=== PATIENT | female | born 1970 | race Two or more races ===

== ENCOUNTER → 2020-05-12 11:01 | Outpatient (BNVA) | payer MEDICARE, OTHER, SELFPAY | PROVIDERS: PCP Internal Medicine; Referring Provider Internal Medicine; Visit Provider Surgery | DX: E66.09 Other obesity due to excess calories (principal); Z68.37 Body mass index [BMI] 37.0-37.9, adult; Z98.84 Bariatric surgery status | CPT/HCPCS: 99024; 99212 ==

== ENCOUNTER → 2020-05-31 07:53 | Outpatient (BNVA) | payer MEDICARE, SELFPAY | PROVIDERS: PCP Internal Medicine; Visit Provider Physician Assistant | DX: E66.09 Other obesity due to excess calories (principal); Z68.36 Body mass index [BMI] 36.0-36.9, adult; Z98.84 Bariatric surgery status | CPT/HCPCS: 99212 ==

== ENCOUNTER → 2020-06-17 08:37 | Outpatient (BNVA) | payer MEDICARE, SELFPAY | PROVIDERS: PCP Internal Medicine; Visit Provider Dietitian, Registered | DX: Z76.89 Persons encountering health services in other specified circumstances (principal) ==

== ENCOUNTER → 2020-06-28 08:51 | Outpatient (BNVA) | payer MEDICARE, SELFPAY | PROVIDERS: PCP Internal Medicine; Referring Provider Internal Medicine; Visit Provider Dietitian, Registered | DX: Z76.89 Persons encountering health services in other specified circumstances (principal) ==

== ENCOUNTER → 2020-06-29 11:02 | Outpatient (BNVA) | payer MEDICARE, SELFPAY | PROVIDERS: PCP Internal Medicine; Visit Provider Physician Assistant | DX: E66.09 Other obesity due to excess calories (principal); Z68.37 Body mass index [BMI] 37.0-37.9, adult; K91.2 Postsurgical malabsorption, not elsewhere classified; Z98.84 Bariatric surgery status | CPT/HCPCS: 99212 ==

== ENCOUNTER → 2020-07-06 09:36 | Outpatient (BNVA) | payer MEDICARE, SELFPAY | PROVIDERS: PCP Internal Medicine; Visit Provider Dietitian, Registered | DX: Z76.89 Persons encountering health services in other specified circumstances (principal) ==

== ENCOUNTER → 2020-07-12 10:39 | Outpatient (BNVA) | payer MEDICARE, SELFPAY | PROVIDERS: PCP Internal Medicine; Visit Provider Surgery | DX: E66.09 Other obesity due to excess calories (principal); Z68.37 Body mass index [BMI] 37.0-37.9, adult; Z98.84 Bariatric surgery status | CPT/HCPCS: 99212 ==

== ENCOUNTER 2020-07-13 09:30 | Outpatient (RCR) | payer MEDICARE, OTHER, SELFPAY | END 2020-07-14 23:55 | disposition home or self-care (01) | LOC: HO.PAOS 09:30 | PROVIDERS: Visit Provider Psychologist | DX: F31.9 Bipolar disorder, unspecified (principal); F43.10 Post-traumatic stress disorder, unspecified; F40.00 Agoraphobia, unspecified; F44.9 Dissociative and conversion disorder, unspecified | CPT/HCPCS: 90834 ==

== ENCOUNTER 2020-07-17 16:19 | Emergency (ER) | payer MEDICARE, MEDICAID, SELFPAY ==
[2020-07-17] VITALS (8 sets, daily range): BP systolic 104–130; BP diastolic 63–73; PULSE 73–88; RESP 14–16; TEMP 36.8; O2SAT 98–100; BMI 33.3
--- NOTE | 2020-07-17 16:25 | ED_ITS ---
HPI - Syncope General Chief Complaint: Syncope Stated Complaint: syncope Time Seen by Provider: 07/17/20 16:23 Source: patient and EMS Mode of arrival: EMS History of Present Illness HPI narrative: 50-year-old female with a past medical history of anxiety, depression, obesity s/p sleeve gastrectomy with hiatal hernia repair on 04/27/2020 BIBA s/p syncopal episode at work. Patient reports she felt lightheaded/dizzy prior to syncopal episode, leaned against wall and slid down, no head strike/hard fall per bystanders. Per coworkers patient was out for about 3 minutes, reports lightheadedness/fatigue at present. Admits since gastrectomy has had difficulty tolerating p.o., has been encouraged to drink more water however gets abdominal pain when does which inhibits her. Has had ED visits for dehydration s/p surgery. Denies syncopal episode in the past. Denies CP/SOB, headache, or other symptoms prior to fall. Denies CP/SOB at present, headache, abdominal pain, nausea/vomiting, recent travel, COVID-19 exposure Related Data Home Medications Medication Instructions Recorded Confirmed acetaminophen 325 mg tablet 325 mg PO QID PRN 05/12/20 06/29/20 famotidine 20 mg tablet 20 mg PO DAILY 05/12/20 05/31/20 Previous Rx's Medication Instructions Recorded bupropion HCl [Wellbutrin XL] 300 mg PO QAM #30 tab 06/21/20 clonazepam [Klonopin] 1 mg PO TID #90 tab 06/21/20 lamotrigine [Lamictal] 25 mg PO DAILY 30 Days #30 tab 06/21/20 sertraline 100 mg PO DAILY #60 tab 06/21/20 topiramate [Topamax] 50 mg PO TID #90 tab 06/21/20 trazodone 50 mg PO BEDTIME #30 tab 06/21/20 ziprasidone HCl [Geodon] 40 mg PO QAM #30 cap 06/21/20 ziprasidone HCl [Geodon] 80 mg PO QPM #30 cap 06/21/20 zolpidem [Ambien] 10 mg PO BEDTIME #30 tab 06/21/20 Allergies Allergy/AdvReac Type Severity Reaction Status Date / Time No Known Allergies Allergy Verified 07/12/20 11:32 Review of Systems Review of Systems: Constitutional: No Weight loss, No Fever, No Chills, No Night Sweats, + Fatigue, No Malaise Eyes: No Vision Changes Cardiovascular: No Chest Pain, No SOB, No Edema, No Palpitations Respiratory: No Cough, No Sputum Gastrointestinal: + Nausea, No Vomiting, No Diarrhea, No Constipation, No Abdominal pain Genitourinary:No Dysuria, No Urinary Frequency, No Hematuria Musculoskeletal: No joint pain, No Myalgias, No Joint Swelling Skin: No Skin Lesions, No rash Neuro: + Weakness, No Numbness, No Paresthesias, + Loss of Consciousness, + Dizziness, No Headache Yes all other systems are reviewed and are negative Neurologic: Denies Sensory deficit (Neuro) [facility] Past Medical History Attestation statement: The following information was validated with the patient. Medical History Anxiety Depression Intestinal malabsorption following gastrectomy Obesity Surgical History History of bilateral tubal ligation History of History of tonsillectomy S/P laparoscopic sleeve gastrectomy Family History Family History Father AIDS Mother High cholesterol HTN (hypertension) Obesity Sister No problems noted. Son No problems noted. Daughter No problems noted. Daughter No problems noted. Maternal Uncle Throat cancer Maternal Uncle Lung cancer Social History Social History (Updated 07/12/20 @ 11:34 by Carrie Baptiste MD) Household Members: Spouse Alcohol intake: unknown Smoking Status: Never smoker Use of substances other than those prescribed or required for medical reasons: No Advance Directives: No Advance Directives Information Provided: No Physical Exam Vital Signs: Vital Signs: Last Vital Signs Temp 98.2 F 07/17/20 16:29 Pulse 73 07/17/20 19:07 Resp 16 07/17/20 19:07 BP 114/68 07/17/20 19:07 Pulse Ox 98 07/17/20 19:07 Body Mass Index 33.3 Const: General: cooperative and healthy appearing Orientation/consciousness: patient oriented x3 Limitations: no limitations HENMT: Head: Yes normal to inspection Ears: hearing grossly normal bilaterally General nose exam: Normal external nose present Face and sinus: Yes normal facial exam Mouth: Normal oral and palatal mucosa present Throat: Yes posterior oropharynx normal Eyes: General: appearance normal, both eyes and all related structures Pupils: Equal, round and reactive pupils present EOM: EOMs intact bilaterally Neck: Neck: Yes normal visual inspection and Yes no meningeal signs Resp: Effort & Inspection: normal respiratory effort Auscultation: clear to auscultation bilaterally, no rales, no rhonchi and no wheezes Cardio: Rate: regular rate Heart sounds: S1 normal heart sound present and S2 normal heart sound present GI: Other: Old surgical scars noted without active infection Inspection: Yes normal to inspection Palpation (GI): Soft to palpation, nontender, no guarding and not rigid Skin: Rashes: no rashes Wounds: no wounds Neuro: General: patient oriented x3, tone normal, moves all extremities, no me ningeal signs, no focal motor deficits and CN's II-XI intact bilaterally Cranial nerves: Yes Equal, round and reactive pupils present Cognition (Neuro): normal cognition Gait exam (Neuro): Normal gait present Motor exam (neuro): 5/5 motor strength present throughout and no pronator drift noted Sensory Exam: No Sensory deficit (Neuro) Coordination: [id number] test normal Extrem: General: Yes normal to inspection Course Course Course Narrative: * EKG normal sinus rhythm, no ischemic changes, inverted Ts in V1 and V2 * H/H stable, BUN 22, labs otherwise unremarkable, troponin negative * Orthostatic vital signs negative * 1932--UA with ketones, not infected, CXR unremarkable * 2021- troponin equivocal MDM - Syncope MDM Narrative Medical decision making narrative: 50-year-old female with a past medical history of anxiety, depression, obesity s/p sleeve gastrectomy with hiatal hernia repair on 04/27/2020 BIBA s/p syncopal episode at work. On exam VSS, NAD/well-appearing, no focal neuro deficits. Concern for syncopal episode due to dehydration/decreased p.o. intake. Rule out electrolyte/metabolic abnormalit ies. Lower concern for ACS/infectious etiology or PE Plan: EKG, labs, UA, IVF, reassess Lab Data Result diagrams: 07/17/20 16:46 07/17/20 16:46 Labs: Lab Results 07/17/20 07/17/20 07/17/20 Range/Units 16:46 16:46 16:46 WBC 9.8 (4.8-10.8) X10*3/uL RBC 4.36 (4.20-5.50) X10*6/uL Hgb 11.7 L (12.0-16.0) g/dl Hct 35.5 L (37-47) % MCV 81.4 (80-98) fL MCH 26.8 L (27.0-33.0) pg MCHC 33.0 (31.0-35.0) g/dl RDW 17.3 H (11.0-16.0) % Plt Count 310 (160-400) X10*3/uL MPV 10.1 (9.4-12.3) fL Immature Gran % (Auto) 0.3 (0.0-0.4) % Neut % (Auto) 73.6 H (45-73) % Lymph % (Auto) 17.5 L (20-40) % [place] % (Auto) 7.1 (2-11) % Eos % (Auto) 1.1 (0-4) % Baso % (Auto) 0.4 (0-2) % Lymph # (Auto) 1.7 (1.2-4.9) X10*3/uL [place] # (Auto) 0.7 (0.1-1.2) X10*3/uL Eos # (Auto) 0.1 (0.0-0.4) X10*3/uL Baso # (Auto) 0.0 (0.0-0.2) X10*3/uL Abs Immat Gran (auto) 0.03 (0.00-0.03) X10*3/uL Absolute Neuts (auto) 7.2 (2.0-8.3) X10*3/uL Absolute Nucleated RBC 0.000 (0.0-0.012) X10*3/uL Nucleated RBC % (auto) 0.0 (0.0-0.2) /100WBC Hold Blue Top SEE NOTE Sodium 139 (135-145) mmol/L Potassium 3.5 (3.3-5.1) mmol/l Chloride 111 H (96-108) mmol/L Carbon Dioxide 21 L (22-29) mmol/L Anion Gap 11 L (12-20) BUN 22 H (9-16) mg/dL Creatinine 0.65 (0.5-1.4) mg/dL Estim Creat Clear Calc 101.9 Estimated GFR > 60 Random Glucose 96 (60-115) mg/dL Calcium 8.2 L (8.4-10.2) mg/dL Magnesium (1.6-2.6) mg/dL Total Bilirubin (0.0-1.0) mg/dL Direct Bilirubin (0.0-0.5) mg/dL AST (5-31) U/L ALT (0-31) U/L Alkaline Phosphatase (39-117) U/L Troponin I High Sens (<3.5-17.0) ng/L Total Protein (6.5-8.0) g/dL Albumin (3.5-5.0) g/dL Urine Color Urine Appearance Urine pH (5.0-8.0) Ur Specific [place] (1.005-1.025) Urine Protein (NEG-TRACE) MG/DL Urine Glucose (UA) (NEG) MG/DL Urine Ketones (NEG) MG/DL Urine Blood (NEG) Urine Nitrite (NEG) Ur Leukocyte Esterase (NEG) 07/17/20 07/17/20 07/17/20 Range/Units 16:46 16:46 19:06 WBC (4.8-10.8) X10*3/uL RBC (4.20-5.50) X10*6/uL Hgb (12.0-16.0) g/dl Hct (37-47) % MCV (80-98) fL MCH (27.0-33.0) pg MCHC (31.0-35.0) g/dl RDW (11.0-16.0) % Plt Count (160-400) X10*3/uL MPV (9.4-12.3) fL Immature Gran % (Auto) (0.0-0.4) % Neut % (Auto) (45-73) % Lymph % (Auto) (20-40) % [place] % (Auto) (2-11) % Eos % (Auto) (0-4) % Baso % (Auto) (0-2) % Lymph # (Auto) (1.2-4.9) X10*3/uL [place] # (Auto) (0.1-1.2) X10*3/uL Eos # (Auto) (0.0-0.4) X10*3/uL Baso # (Auto) (0.0-0.2) X10*3/uL Abs Immat Gran (auto) (0.00-0.03) X10*3/uL Absolute Neuts (auto) (2.0-8.3) X10*3/uL Absolute Nucleated RBC (0.0-0.012) X10*3/uL Nucleated RBC % (auto) (0.0-0.2) /100WBC Hold Blue Top Sodium (135-145) mmol/L Potassium (3.3-5.1) mmol/l Chloride (96-108) mmol/L Carbon Dioxide (22-29) mmol/L Anion Gap (12-20) BUN (9-16) mg/dL Creatinine (0.5-1.4) mg/dL Estim Creat Clear Calc Estimated GFR Random Glucose (60-115) mg/dL Calcium (8.4-10.2) mg/dL Magnesium 1.8 (1.6-2.6) mg/dL Total Bilirubin 0.3 (0.0-1.0) mg/dL Direct Bilirubin 0.2 (0.0-0.5) mg/dL AST 14 (5-31) U/L ALT 23 (0-31) U/L Alkaline Phosphatase 46 (39-117) U/L Troponin I High Sens < 3.5 (<3.5-17.0) ng/L Total Protein 6.1 L (6.5-8.0) g/dL Albumin 3.9 (3.5-5.0) g/dL Urine Color YELLOW Urine Appearance CLEAR Urine pH 6.5 (5.0-8.0) Ur Specific [place] 1.015 (1.005-1.025) Urine Protein NEG (NEG-TRACE) MG/DL Urine Glucose (UA) NEG (NEG) MG/DL Urine Ketones 15 (NEG) MG/DL Urine Blood NEG (NEG) Urine Nitrite NEG (NEG) Ur Leukocyte Esterase NEG (NEG) 07/17/20 Range/Units 19:30 WBC (4.8-10.8) X10*3/uL RBC (4.20-5.50) X10*6/uL Hgb (12.0-16.0) g/dl Hct (37-47) % MCV (80-98) fL MCH (27.0-33.0) pg MCHC (31.0-35.0) g/dl RDW (11.0-16.0) % Plt Count (160-400) X10*3/uL MPV (9.4-12.3) fL Immature Gran % (Auto) (0.0-0.4) % Neut % (Auto) (45-73) % Lymph % (Auto) (20-40) % [place] % (Auto) (2-11) % Eos % (Auto) (0-4) % Baso % (Auto) (0-2) % Lymph # (Auto) (1.2-4.9) X10*3/uL [place] # (Auto) (0.1-1.2) X10*3/uL Eos # (Auto) (0.0-0.4) X10*3/uL Baso # (Auto) (0.0-0.2) X10*3/uL Abs Immat Gran (auto) (0.00-0.03) X10*3/uL Absolute Neuts (auto) (2.0-8.3) X10*3/uL Absolute Nucleated RBC (0.0-0.012) X10*3/uL Nucleated RBC % (auto) (0.0-0.2) /100WBC Hold Blue Top Sodium (135-145) mmol/L Potassium (3.3-5.1) mmol/l Chloride (96-108) mmol/L Carbon Dioxide (22-29) mmol/L Anion Gap (12-20) BUN (9-16) mg/dL Creatinine (0.5-1.4) mg/dL Estim Creat Clear Calc Estimated GFR Random Glucose (60-115) mg/dL Calcium (8.4-10.2) mg/dL Magnesium (1.6-2.6) mg/dL Total Bilirubin (0.0-1.0) mg/dL Direct Bilirubin (0.0-0.5) mg/dL AST (5-31) U/L ALT (0-31) U/L Alkaline Phosphatase (39-117) U/L Troponin I High Sens < 3.5 (<3.5-17.0) ng/L Total Protein (6.5-8.0) g/dL Albumin (3.5-5.0) g/dL Urine Color Urine Appearance Urine pH (5.0-8.0) Ur Specific [place] (1.005-1.025) Urine Protein (NEG-TRACE) MG/DL Urine Glucose (UA) (NEG) MG/DL Urine Ketones (NEG) MG/DL Urine Blood (NEG) Urine Nitrite (NEG) Ur Leukocyte Esterase (NEG) Discharge Plan Discharge Clinical Impression: Dehydration Syncope Qualifiers: Syncope type: unspecified Qualified Code(s): R55 - Syncope and collapse Patient Disposition: Home, Self-Care Instructions: Syncope (ED) Additional Instructions: Your blood work and imaging studies were reassuring You are dehydrated You need to stay hydrated at home, and the drinking your protein shakes Call your bariatric surgeon for close follow up If your symptoms persist or worsen, your unable to eat or drink, develops fever, persistent or recurring lightheadedness/dizziness, or are passing out again return to the ED immediately Prescriptions: No Action ziprasidone HCl [Geodon] 40 mg capsule 40 mg PO QAM Qty: 30 RF: 1 ziprasidone HCl [Geodon] 80 mg capsule 80 mg PO QPM Qty: 30 RF: 1 trazodone 50 mg tablet 50 mg PO BEDTIME Qty: 30 RF: 1 topiramate [Topamax] 50 mg tablet 50 mg PO TID Qty: 90 RF: 1 sertraline 50 mg tablet 100 mg PO DAILY Qty: 60 RF: 1 lamotrigine [Lamictal] 25 mg tablet 25 mg PO DAILY 30 Days Qty: 30 RF: 1 bupropion HCl [Wellbutrin XL] 300 mg tablet extended release 24 hr 300 mg PO QAM Qty: 30 RF: 1 zolpidem [Ambien] 10 mg tablet 10 mg PO BEDTIME Qty: 30 RF: 1 clonazepam [Klonopin] 1 mg tablet 1 mg PO TID Qty: 90 RF: 1 famotidine [Pepcid] 20 mg tablet 20 mg PO DAILY RF: 0 acetaminophen [Tylenol] 325 mg tablet 325 mg PO QID PRNRF: 0 Referrals: Ilene Chambers MD [Primary Care Provider] - 2 days Carrie Baptiste MD [Physician] - 3 days Stand Alone Forms: Work/School Release
--- NOTE | 2020-07-17 16:33 | ECG_ITS ---
Test Reason : SYNCOPY Blood Pressure : / mmHG Vent. Rate : 076 BPM Atrial Rate : 076 BPM P-R Int : 160 ms QRS Dur : 084 ms QT Int : 370 ms P-R-T Axes : 056 024 033 degrees QTc Int : 416 ms Normal sinus rhythm Nonspecific T wave abnormality Abnormal ECG When compared with ECG of 19-APR-2020 10:55, Nonspecific T wave abnormality now evident in Anterior leads Referred By: Arabella Davila Electronically Signed By:JAMAAL LUZ
[2020-07-17 16:51] LABS: MANUAL DIFF FLAG NO
[2020-07-17 16:59] LABS: Basophils Percent Auto 0.4 % (0-2); Eosinophils Absolute Auto 0.1 X10*3/uL (0.0-0.4); Eosinophils Percent Auto 1.1 % (0-4); Hematocrit 35.5 % (37-47); Hemoglobin 11.7 g/dl (12.0-16.0); Imm Gran Abs Auto 0.03 X10*3/uL (0.00-0.03); Imm Gran Pct Auto 0.3 % (0.0-0.4); Lymphocytes Absolute Auto 1.7 X10*3/uL (1.2-4.9); Lymphocytes Percent Auto 17.5 % (20-40); Mean Corpuscular Hemoglobin 26.8 pg (27.0-33.0); Mean Corpuscular Volume 81.4 fL (80-98); Mean Platelet Volume 10.1 fL (9.4-12.3); Monocytes Absolute Auto 0.7 X10*3/uL (0.1-1.2); Monocytes Percent Auto 7.1 % (2-11); Neutrophils Absolute Auto 7.2 X10*3/uL (2.0-8.3); Neutrophils Percent Auto 73.6 % (45-73); Platelet Count 310 X10*3/uL (160-400); Red Blood Count 4.36 X10*6/uL (4.20-5.50); Red Cell Distribution Width 17.3 % (11.0-16.0); White Blood Count 9.8 X10*3/uL (4.8-10.8)
[2020-07-17 17:19] LABS: Anion Gap 11 (12-20); Blood Urea Nitrogen 22 mg/dL (9-16); Calcium 8.2 mg/dL (8.4-10.2); Carbon Dioxide 21 mmol/L (22-29); Chloride 111 mmol/L (96-108); Creatinine Clr Calc Pharmacy 101.9; Estimated Glomerular Filt Rate > 60; Glucose Random 96 mg/dL (60-115); Potassium 3.5 mmol/l (3.3-5.1); Sodium 139 mmol/L (135-145)
[2020-07-17 17:21] LABS: Alanine Aminotransferase 23 U/L (0-31); Albumin Level 3.9 g/dL (3.5-5.0); Alkaline Phosphatase 46 U/L (39-117); Aspartate Amino Transferase 14 U/L (5-31); Bilirubin Direct 0.2 mg/dL (0.0-0.5); Bilirubin Total 0.3 mg/dL (0.0-1.0); Magnesium 1.8 mg/dL (1.6-2.6); Total Protein 6.1 g/dL (6.5-8.0)
[2020-07-17 17:25] LABS: Troponin-I High Sensitivity < 3.5 ng/L (<3.5-17.0)
[2020-07-17] MEDS: 0.9 % Sodium Chloride 1,000 ML 999 ML IVCONT ×2 (17:31→19:05)
[2020-07-17] MEDS: ondansetron HCL 4 MG/2 ML VIAL IVPUSH (17:31)
--- NOTE | 2020-07-17 18:03 | XR_ITS ---
EXAMINATION: XR CHEST CLINICAL INFORMATION: Syncope. COMPARISON: Chest radiograph dated 01/13/2020. TECHNIQUE: Frontal view of the chest was obtained. FINDINGS: The lungs are clear. The cardiomediastinal silhouette is normal in size. There is no pleural effusion or pneumothorax. No acute osseous abnormality. XR/XR chest 1V IMPRESSION: No acute cardiopulmonary findings.
--- NOTE | 2020-07-17 18:59 | PC.NURSE ---
Pt OOB to the bathroom to provide urine sample. Denies pain/discomfort at this time.
[2020-07-17 19:29] LABS: Glucose Urine UA NEG (NEG); Leukocyte Esterase Urine NEG (NEG); Nitrite Urine NEG (NEG); PH 6.5 (5.0-8.0); Specific Gravity - Urine 1.015 (1.005-1.025); Urine Blood NEG (NEG); Urine Ketones 15 MG/DL (NEG); Urine Protein NEG (NEG-TRACE)
[2020-07-17 19:32] LABS: Appearance Urine CLEAR; Color Urine YELLOW
[2020-07-17 20:21] LABS: Troponin-I High Sensitivity < 3.5 ng/L (<3.5-17.0)
== END 2020-07-17 21:32 | disposition home or self-care (01) ==
PROVIDERS: Physician Assistant; Emergency Provider Internal Medicine; PCP Internal Medicine
DX: R55 Syncope and collapse (principal); E86.0 Dehydration; R42 Dizziness and giddiness; Z79.899 Other long term (current) drug therapy; Z98.84 Bariatric surgery status
CPT/HCPCS: 36415; 71045; 80048; 80076; 81003; 83735; 84484; 85025; 93005; 96361; 96374; 99284; 99285; J2405

== ENCOUNTER 2020-07-27 12:30 | Outpatient (RCR) | payer MEDICARE, MEDICAID, OTHER, SELFPAY ==
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
--- NOTE | 2020-07-21 08:39 | P.EN_ITS ---
Event Note Date of Service: 07/21/20 Event Note: On 07/11/20 pt notified of [facility] out patient clinic closing. Currently she is undecided regarding therapy and medication follow up. We will continue to discuss options in upcoming meetings.
--- NOTE | 2020-07-21 08:39 | PM.EVENT ---
Event Note Date of Service: 07/21/20 Event Note: On 07/11/20 pt notified of [facility] [place]. Currently she is undecided regarding therapy and medication follow up. We will continue to discuss options in upcoming meetings.
--- NOTE | 2020-07-27 15:35 | HO.OPPROGNO ---
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 Some distress and regret with outcome of bariatric procedure due to SE. Reminded pt that she is only 90 days post procedure and healing and body readjusting takes time. She reports significant success but needing to make methodology changes in her well-established processes which does take up time. Family is well. Medications are intact-Prazosin discontinued due to hypotension and she is managing without breakthrough nightmares currently. Discussed clinic closing and moving to another provider group. 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), Reports hopelessness (at times) and Reports mood swings (at times) Mental Status Exam Mental Status Exam Patient Orientation: Person, Place, Time and Situation Level of Consciousness: Awake, Appropriate and Alert Patient Behavior: Appropriate and Talkative Mood Description: Depressed Affect Description: Flat Patient Cognition Impaired: No Ability to Follow Directions: Good Speech Pattern: Clear, Appropriate, Spontaneous Speech and Coherent Memory Description: Intact Hallucinations: None Delusions: Not Present Thought Process: Intact Thought Content: positive for Intact Depressive Symptoms: Increased Anxiety, Significant Weight Loss (s/p bypass) and Unhappiness Judgement: Good Discharge Plan Discharge Attending provider: Kassidy Carrasquillo Additional Instructions: 07/27/20-continue current regime Medications: Continued ziprasidone HCl [Geodon] 80 mg capsule 80 mg PO QPM Qty: 30 RF: 1 trazodone 50 mg tablet 50 mg PO BEDTIME Qty: 30 RF: 1 clonazepam [Klonopin] 1 mg tablet 1 mg PO TID Qty: 90 RF: 1 lamotrigine [Lamictal] 25 mg tablet 25 mg PO DAILY 30 Days Qty: 30 RF: 1 ziprasidone HCl [Geodon] 40 mg capsule 40 mg PO QAM Qty: 30 RF: 1 zolpidem [Ambien] 10 mg tablet 10 mg PO BEDTIME Qty: 30 RF: 1 sertraline 50 mg tablet 100 mg PO DAILY Qty: 60 RF: 1 bupropion HCl [Wellbutrin XL] 300 mg tablet extended release 24 hr 300 mg PO QAM Qty: 30 RF: 1 topiramate [Topamax] 50 mg tablet 50 mg PO TID Qty: 90 RF: 1 No Action famotidine [Pepcid] 20 mg tablet 20 mg PO DAILY RF: 0 acetaminophen [Tylenol] 325 mg tablet 325 mg PO QID PRNRF: 0 Assessment & Plan Patient educated on: medication risk/benefits and therapeutic strategies Informed Consent: understands and further education needed Reason for contiued therapy Substantial Risk for: harm to self, inability to function and rapid decompensation Greater than 50% of the session was spent on counseling and/or coordination of care Telehealth Telehealth Location of provider rendering services: practice address Location of patient: address on file Patient Identification confirmed using: Name, : Yes Telehealth method: voice only Patient verbally consented to treatment: Yes Patient verbally consented to billing insurance company: Yes Patient informed of any privacy concerns related to visit: Yes Time spent with patient (mins): 30
== END 2020-08-04 23:55 | disposition home or self-care (01) ==
LOC: HO.PAOS 12:30
PROVIDERS: Visit Provider Clinical Nurse Specialist Psychiatric/Mental Health, Adult
DX: F32.9 Major depressive disorder, single episode, unspecified (principal); Z79.899 Other long term (current) drug therapy
CPT/HCPCS: 99214

== ENCOUNTER → 2020-08-19 08:36 | Outpatient (BNVA) | payer MEDICARE, MEDICAID, SELFPAY | PROVIDERS: PCP Internal Medicine; Visit Provider Surgery | DX: K91.2 Postsurgical malabsorption, not elsewhere classified (principal); E66.09 Other obesity due to excess calories; Z68.37 Body mass index [BMI] 37.0-37.9, adult; Z90.3 Acquired absence of stomach [part of]; Z98.84 Bariatric surgery status | CPT/HCPCS: 99212 ==

== ENCOUNTER → 2020-11-18 08:11 | Outpatient (BNVA) | payer MEDICARE, OTHER, SELFPAY | PROVIDERS: PCP Internal Medicine; Visit Provider Dietitian, Registered | DX: E66.3 Overweight (principal) | CPT/HCPCS: 97803 ==

== ENCOUNTER 2020-12-16 06:42 | Outpatient (REF) | payer MEDICARE, MEDICAID, SELFPAY ==
--- NOTE | 2020-12-16 | ECG_ITS ---
Test Reason : QTC PROLONGATION Blood Pressure : / mmHG Vent. Rate : 060 BPM Atrial Rate : 060 BPM P-R Int : 122 ms QRS Dur : 078 ms QT Int : 442 ms P-R-T Axes : 000 068 066 degrees QTc Int : 442 ms Normal sinus rhythm Normal ECG When compared with ECG of 17-JUL-2020 16:46, No significant change was found Referred By: Kassidy Robin Electronically Signed By:SKYLAR VALLADARES MD
[2020-12-16 07:48] LABS: Estimated Average Glucose 94 mg/dL; Hemoglobin A1c % 4.9 %
[2020-12-16 07:59] LABS: Alanine Aminotransferase 20 U/L (0-31); Albumin Level 4.4 g/dL (3.5-5.0); Alkaline Phosphatase 49 U/L (39-117); Anion Gap 12 (12-20); Aspartate Amino Transferase 13 U/L (5-31); Bilirubin Total 0.5 mg/dL (0.0-1.0); Blood Urea Nitrogen 14 mg/dL (9-16); Calcium 9.1 mg/dL (8.4-10.2); Carbon Dioxide 22 mmol/L (22-29); Chloride 111 mmol/L (96-108); Cholesterol 209 mg/dL; Estimated Glomerular Filt Rate > 60; Glucose Random 90 mg/dL (60-115); HDL Cholesterol 39 mg/dL; Iron 74 mcg/dL (30-160); LDL Cholesterol Calculated 156 mg/dl; Percent Iron Saturation 31 % (15-50); Sodium 141 mmol/L (135-145); Total Iron Binding Capacity 236 mcg/dL (228-428); Total Protein 6.8 g/dL (6.5-8.0); Triglycerides 74 mg/dL; Unsaturated Iron Binding 162 ug/dL
[2020-12-16 08:22] LABS: Ferritin 252 ng/mL (10-250); Free T4 (Free Thyroxine) 0.93 ng/dL (0.71-1.85); Thyroid Stimulating Hormone 0.97 uIU/mL (0.32-4.0); Vitamin D 25-OH Total 55.4 ng/mL (>30)
[2020-12-16 08:43] LABS: Folate 17.3 ng/mL (> or = 4.0); Vitamin B12 519 pg/mL (200-900)
== END 2020-12-16 06:43 | disposition home or self-care (01) ==
LOC: HO.LAB 06:42
PROVIDERS: PCP Internal Medicine; Visit Provider Clinical Nurse Specialist Psychiatric/Mental Health, Adult
DX: F31.4 Bipolar disorder, current episode depressed, severe, without psychotic features (principal)
CPT/HCPCS: 36415; 80053; 80061; 82306; 82607; 82728; 82746; 83036; 83540; 84439; 84443; 93005

== ENCOUNTER 2021-02-02 09:22 | Outpatient (REF) | payer MEDICARE, MEDICAID, SELFPAY ==
[2021-02-02 11:45] LABS: MANUAL DIFF FLAG NO
[2021-02-02 11:54] LABS: Estimated Average Glucose 82 mg/dL; Hemoglobin A1c % 4.5 %
[2021-02-02 12:03] LABS: Basophils Percent Auto 0.7 % (0-2); Eosinophils Absolute Auto 0.1 X10*3/uL (0.0-0.4); Hematocrit 36.3 % (37-47); Hemoglobin 11.7 g/dl (12.0-16.0); Imm Gran Abs Auto 0.02 X10*3/uL (0.00-0.03); Imm Gran Pct Auto 0.3 % (0.0-0.4); Lymphocytes Absolute Auto 1.4 X10*3/uL (1.2-4.9); Lymphocytes Percent Auto 22.4 % (20-40); Mean Corpuscular HGB Conc 32.2 g/dl (31.0-35.0); Mean Corpuscular Volume 83.8 fL (80-98); Mean Platelet Volume 10.3 fL (9.4-12.3); Monocytes Absolute Auto 0.4 X10*3/uL (0.1-1.2); Monocytes Percent Auto 6.4 % (2-11); Neutrophils Absolute Auto 4.2 X10*3/uL (2.0-8.3); Neutrophils Percent Auto 69.2 % (45-73); Platelet Count 358 X10*3/uL (160-400); Red Blood Count 4.33 X10*6/uL (4.20-5.50); Red Cell Distribution Width 15.6 % (11.0-16.0); White Blood Count 6.1 X10*3/uL (4.8-10.8)
[2021-02-02 12:23] LABS: Alanine Aminotransferase 12 U/L (0-31); Albumin Level 4.2 g/dL (3.5-5.0); Alkaline Phosphatase 52 U/L (39-117); Anion Gap 10 (12-20); Aspartate Amino Transferase 11 U/L (5-31); Bilirubin Total 0.3 mg/dL (0.0-1.0); Blood Urea Nitrogen 20 mg/dL (9-16); C Reactive Protein 0.22 mg/dL (< or = 0.50); Calcium 8.9 mg/dL (8.4-10.2); Carbon Dioxide 22 mmol/L (22-29); Chloride 113 mmol/L (96-108); Cholesterol 186 mg/dL; Estimated Glomerular Filt Rate > 60; Glucose Random 86 mg/dL (60-115); HDL Cholesterol 42 mg/dL; Iron 66 mcg/dL (30-160); LDL Cholesterol Calculated 127 mg/dl; Percent Iron Saturation 26 % (15-50); Sodium 141 mmol/L (135-145); Total Iron Binding Capacity 257 mcg/dL (228-428); Total Protein 6.6 g/dL (6.5-8.0); Triglycerides 86 mg/dL; Unsaturated Iron Binding 191 ug/dL
[2021-02-02 12:44] LABS: Ferritin 173 ng/mL (10-250); TSH reflex Free T4 0.34 uIU/mL (0.32-4.0)
[2021-02-02 12:49] LABS: Vitamin B12 491 pg/mL (200-900)
[2021-02-03 09:07] LABS: Insulin Level Total 5.9 uIU/mL
[2021-02-03 13:36] LABS: Calcium (PTHI) 8.9 mg/dL (8.6-10.4); PTHI 21 pg/mL (14-64)
[2021-02-07 12:47] LABS: Vitamin B1 11 nmol/L (8-30)
[2021-02-07 14:21] LABS: Zinc 66 mcg/dL (60-130)
[2021-02-08 11:47] LABS: Vitamin A 54 mcg/dL (38-98)
== END 2021-02-02 09:23 | disposition home or self-care (01) ==
LOC: HO.LAB 09:22
PROVIDERS: PCP Internal Medicine; Visit Provider Physician Assistant
DX: R53.1 Weakness (principal); R53.83 Other fatigue; R51.9 Headache, unspecified; R19.7 Diarrhea, unspecified; Z98.84 Bariatric surgery status; Z71.3 Dietary counseling and surveillance; Z79.899 Other long term (current) drug therapy
CPT/HCPCS: 36415; 80053; 80061; 82306; 82607; 82728; 82746; 83036; 83525; 83540; 83970; 84425; 84443; 84590; 84630; 85025; 86140; 99212

== ENCOUNTER 2021-02-21 10:52 | Emergency (ER) | payer MEDICARE, MEDICAID, SELFPAY ==
[2021-02-21 10:57] VITALS: BP 105/61; BP 150/110; PULSE 101; PULSE 87; RESP 18; TEMP 37.1; O2SAT 99; BMI 23.4
--- NOTE | 2021-02-21 11:14 | ECG_ITS ---
Test Reason : SUBSTANCEABUSE Blood Pressure : / mmHG Vent. Rate : 076 BPM Atrial Rate : 076 BPM P-R Int : 134 ms QRS Dur : 076 ms QT Int : 430 ms P-R-T Axes : 033 054 057 degrees QTc Int : 483 ms Sinus rhythm with Sinus Arrhythmia Prolonged QT Abnormal ECG When compared with ECG of 16-DEC-2020 07:07, QT has lengthened Referred By: Adele Cannon Electronically Signed By:SKYLAR VALLADARES MD
--- NOTE | 2021-02-21 11:18 | ED.GENADULT ---
HPI - General Adult General Chief complaint: ETOH/Substance Use Stated complaint: cocaine use, anxiety Time Seen by Provider: 02/21/21 11:06 Source: patient and EMS Mode of arrival: EMS Limitations: no limitations History of Present Illness HPI narrative: Patient comes to emergency room complaining of chest pressure. Patient states that yesterday she drank a large amount of alcohol and between 19:00 and 04:00 this morning she consumed a large amount of cocaine which she usually does not use. Patient complaining of anxiety, denies suicidal homicidal ideation. Patient also states that since she had her gastric sleeve surgery, she has had multiple episodes of vomiting right after eating. Patient states for the last 2 days it has been gotten worse. Patient denies abdominal pain. Related Data Home Medications Medication Instructions Recorded Confirmed acetaminophen 325 mg tablet 325 mg PO QID PRN 05/12/20 08/19/20 celebrate calcium 1 tab PO BID 08/19/20 08/19/20 celebrate mvi 1 tab PO 08/19/20 08/19/20 Previous Rx's Medication Instructions Recorded bupropion HCl [Wellbutrin XL] 300 mg PO QAM #30 tab 11/21/20 clonazepam [Klonopin] 1 mg PO TID #90 tab 11/21/20 sertraline 100 mg PO DAILY #60 tab 11/21/20 topiramate [Topamax] 50 mg PO TID #90 tab 11/21/20 trazodone 50 mg PO BEDTIME #30 tab 11/21/20 ziprasidone HCl [Geodon] 40 mg PO QAM #30 cap 11/21/20 ferrous sulfate 325 mg (65 mg 325 mg PO DAILY #30 tab 02/03/21 iron) tablet Allergies Allergy/AdvReac Type Severity Reaction Status Date / Time No Known Allergies Allergy Verified 02/02/21 09:34 Review of Systems Review of Systems: Constitutional : No Weight loss, No Fever, No Chills, No Night Sweats, No Fatigue, No Malaise ENT/Mouth : No Hearing loss, No Ear Pain, No Nasal Congestion, No Sinus Pain, No Hoarseness, No sore throat, No Rhinorrhea, No Swallowing Difficulty Eyes: No Eye Pain, No Swelling, No Redness, No Foreign Body, No Discharge, No Vision Changes Cardiovascular : Complaining of chest pressure, No SOB, No Dyspnea on Exertion, No Orthopnea, No Edema, No Palpitations Respiratory : No Cough, No Sputum, No Wheezing, No Smoke Exposure, No Dyspnea Gastrointestinal : Complaining of nausea, vomiting after eating or drinking, No Diarrhea, No Constipation, No abdominal Pain, No Hematochezia, No Melena Genitourinary : no irregular bleeding, No Dysuria, No Urinary Frequency, No Hematuria, No Urinary Incontinence, No Urgency, No Flank Pain, No Urinary Flow Changes, No Hesitancy Musculoskeletal : No joint pain, No Myalgias, No Joint Swelling Skin : No Skin Lesions, No rash Neuro : No Weakness, No Numbness, No Paresthesias, No Loss of Consciousness, No Dizziness, No Headache Psych : Complaining of anxiety, No Depression, No SI/HI/AH/VH, admits to drug abuse Heme/Lymph: No Bruising, No Bleeding,No Lymphadenopathy Endocrine : No Polyuria, No Polydipsia, No Temperature Intolerance [facility] [place] Past Medical History Medical History (Updated 02/21/21 @ 13:17 by Adele Cannon MD) Anxiety Depression Intestinal malabsorption following gastrectomy Obesity Substance abuse Surgical History History of bilateral tubal ligation History of History of tonsillectomy S/P laparoscopic sleeve gastrectomy Family History Family History Father AIDS Mother High cholesterol HTN (hypertension) Obesity Sister No problems noted. Son No problems noted. Daughter No problems noted. Daughter No problems noted. Maternal Uncle Throat cancer Maternal Uncle Lung cancer Social History Social History Household Members: Spouse Alcohol intake: current Alcohol intake frequency: a few times a week Alcohol type: beer and hard liquor Patient Tobacco Use Status: Current someday Tobacco user Use of substances other than those prescribed or required for medical reasons: Yes Substance Use Type: Crack/Cocaine Substance Use Frequency: Socially Last Used Substance: Days (ago) Any prior treatment program specific to substance use: No Advance Directives: No Advance Directives Information Provided: No Patient : No Physical Exam Vital Signs: Vital Signs: Last Vital Signs Temp 97.8 F 02/21/21 12:37 Pulse 67 02/21/21 12:37 Resp 17 02/21/21 12:37 BP 106/61 02/21/21 12:37 Pulse Ox 99 02/21/21 12:37 Body Mass Index 23.4 Appearance: Alert. Oriented X3. Anxious Eyes: Pupils equal, round and reactive to light. ENT: Pharynx normal. Neck: Normal inspection. Neck supple. No lymph nodes noted. No crepitus CVS: Normal heart rate and rhythm. Pulses normal. Normal S1 and S2 Respiratory: No respiratory distress. Breath sounds normal. No Wheezing. No rales Abdomen: Soft and nontender. No rigidity. No distention. good BS x4 Skin: Skin warm and dry. Normal skin color. Normal skin turgor. Extremities: No lower extremity edema. No lower extremity edema. No Lacerations. No Rash Neuro: Oriented X 3. No motor deficit. No sensory deficit. Moving all extermities. No slurred speech. Course Course Course Narrative: At this time, will obtain labs, patient will be rehydrated, aspirin given to the patient. The rhythmic gymnastics coach spoke with the patient. Patient states that she does not have a problem. States that this was a 1 time thing that happen. Patient refused any further help. Patient states that she feels much better, no longer anxious, no chest pain. Patient's troponin negative. Medical Decision Making Lab Data Result diagrams: 02/21/21 11:33 02/21/21 11:33 Labs: Lab Results 02/21/21 02/21/21 02/21/21 Range/Units 11:27 11:27 11:33 WBC 11.6 H (4.8-10.8) X10*3/uL RBC 4.30 (4.20-5.50) X10*6/uL Hgb 11.9 L (12.0-16.0) g/dl Hct 34.5 L (37-47) % MCV 80.2 (80-98) fL MCH 27.7 (27.0-33.0) pg MCHC 34.5 (31.0-35.0) g/dl RDW 14.2 (11.0-16.0) % Plt Count 389 (160-400) X10*3/uL MPV 9.4 (9.4-12.3) fL Immature Gran % (Auto) 0.4 (0.0-0.4) % Neut % (Auto) 65.6 (45-73) % Lymph % (Auto) 27.6 (20-40) % [place] % (Auto) 5.9 (2-11) % Eos % (Auto) 0.2 (0-4) % Baso % (Auto) 0.3 (0-2) % Lymph # (Auto) 3.2 (1.2-4.9) X10*3/uL [place] # (Auto) 0.7 (0.1-1.2) X10*3/uL Eos # (Auto) 0.0 (0.0-0.4) X10*3/uL Baso # (Auto) 0.0 (0.0-0.2) X10*3/uL Abs Immat Gran (auto) 0.05 H (0.00-0.03) X10*3/uL Absolute Neuts (auto) 7.6 (2.0-8.3) X10*3/uL Absolute Nucleated RBC 0.000 (0.0-0.012) X10*3/uL Nucleated RBC % (auto) 0.0 (0.0-0.2) /100WBC Sodium (135-145) mmol/L Potassium (3.3-5.1) mmol/L Chloride (96-108) mmol/L Carbon Dioxide (22-29) mmol/L Anion Gap (12-20) BUN (9-16) mg/dL Creatinine (0.5-1.4) mg/dL Estim Creat Clear Calc Estimated GFR Random Glucose (60-115) mg/dL Calcium (8.4-10.2) mg/dL Total Bilirubin (0.0-1.0) mg/dL Direct Bilirubin (0.0-0.5) mg/dL AST (5-31) U/L ALT (0-31) U/L Alkaline Phosphatase (39-117) U/L Troponin I High Sens (<3.5-17.0) ng/L Total Protein (6.5-8.0) g/dL Albumin (3.5-5.0) g/dL Urine Color YELLOW Urine Appearance CLEAR Urine pH 7.0 (5.0-8.0) Ur Specific [place] 1.010 (1.005-1.025) Urine Protein NEG (NEG-TRACE) MG/DL Urine Glucose (UA) NEG (NEG) MG/DL Urine Ketones NEG (NEG) MG/DL Urine Blood NEG (NEG) Urine Nitrite NEG (NEG) Ur Leukocyte Esterase NEG (NEG) Urine Opiates Screen Not Detected (Not Detect) Ur Barbiturates Screen Not Detected (Not Detect) Ur Phencyclidine Scrn Not Detected (Not Detect) Ur Amphetamines Screen Not Detected (Not Detect) U Benzodiazepines Scrn Not Detected (Not Detect) Urine Cocaine Screen POSITIVE H (Not Detect) U Marijuana (THC) Screen Not Detected (Not Detect) 02/21/21 02/21/21 Range/Units 11:33 11:33 WBC (4.8-10.8) X10*3/uL RBC (4.20-5.50) X10*6/uL Hgb (12.0-16.0) g/dl Hct (37-47) % MCV (80-98) fL MCH (27.0-33.0) pg MCHC (31.0-35.0) g/dl RDW (11.0-16.0) % Plt Count (160-400) X10*3/uL MPV (9.4-12.3) fL Immature Gran % (Auto) (0.0-0.4) % Neut % (Auto) (45-73) % Lymph % (Auto) (20-40) % [place] % (Auto) (2-11) % Eos % (Auto) (0-4) % Baso % (Auto) (0-2) % Lymph # (Auto) (1.2-4.9) X10*3/uL [place] # (Auto) (0.1-1.2) X10*3/uL Eos # (Auto) (0.0-0.4) X10*3/uL Baso # (Auto) (0.0-0.2) X10*3/uL Abs Immat Gran (auto) (0.00-0.03) X10*3/uL Absolute Neuts (auto) (2.0-8.3) X10*3/uL Absolute Nucleated RBC (0.0-0.012) X10*3/uL Nucleated RBC % (auto) (0.0-0.2) /100WBC Sodium 140 (135-145) mmol/L Potassium 3.6 (3.3-5.1) mmol/L Chloride 108 (96-108) mmol/L Carbon Dioxide 22 (22-29) mmol/L Anion Gap 14 (12-20) BUN 10 (9-16) mg/dL Creatinine 0.63 (0.5-1.4) mg/dL Estim Creat Clear Calc 87.4 Estimated GFR > 60 Random Glucose 94 (60-115) mg/dL Calcium 9.3 (8.4-10.2) mg/dL Total Bilirubin 0.4 (0.0-1.0) mg/dL Direct Bilirubin 0.2 (0.0-0.5) mg/dL AST 13 (5-31) U/L ALT 12 (0-31) U/L Alkaline Phosphatase 47 (39-117) U/L Troponin I High Sens < 3.5 (<3.5-17.0) ng/L Total Protein 6.7 (6.5-8.0) g/dL Albumin 4.1 (3.5-5.0) g/dL Urine Color Urine Appearance Urine pH (5.0-8.0) Ur Specific [place] (1.005-1.025) Urine Protein (NEG-TRACE) MG/DL Urine Glucose (UA) (NEG) MG/DL Urine Ketones (NEG) MG/DL Urine Blood (NEG) Urine Nitrite (NEG) Ur Leukocyte Esterase (NEG) Urine Opiates Screen (Not Detect) Ur Barbiturates Screen (Not Detect) Ur Phencyclidine Scrn (Not Detect) Ur Amphetamines Screen (Not Detect) U Benzodiazepines Scrn (Not Detect) Urine Cocaine Screen (Not Detect) U Marijuana (THC) Screen (Not Detect) ECG Data Attestation: I personally reviewed and interpreted this ECG as follows: (Sinus rhythm, ST segment depression or elevation, no T-wave inversion, QTC 483) Discharge Plan Discharge Clinical Impression: Cocaine abuse, Atypical chest pain Patient Disposition: Home, Self-Care Instructions: Chest Pain (ED), Cocaine Abuse (ED) Additional Instructions: Please follow-up with your primary care physician tomorrow. If you have any worsening or new symptoms, please return to the emergency room or call 911 Prescriptions: No Action ferrous sulfate 325 mg (65 mg iron) tablet 325 mg PO DAILY Qty: 30 RF: 6 trazodone 50 mg tablet 50 mg PO BEDTIME Qty: 30 RF: 1 clonazepam [Klonopin] 1 mg tablet 1 mg PO TID Qty: 90 RF: 1 ziprasidone HCl [Geodon] 40 mg capsule 40 mg PO QAM Qty: 30 RF: 1 sertraline 50 mg tablet 100 mg PO DAILY Qty: 60 RF: 1 bupropion HCl [Wellbutrin XL] 300 mg tablet extended release 24 hr 300 mg PO QAM Qty: 30 RF: 1 topiramate [Topamax] 50 mg tablet 50 mg PO TID Qty: 90 RF: 1 celebrate mvi 1 tab PO RF: 0 celebrate calcium 1 tab PO BID RF: 0 acetaminophen [Tylenol] 325 mg tablet 325 mg PO QID PRNRF: 0
[2021-02-21 11:37] LABS: Glucose Urine UA NEG (NEG); Leukocyte Esterase Urine NEG (NEG); Nitrite Urine NEG (NEG); Urine Blood NEG (NEG); Urine Ketones NEG (NEG); Urine Protein NEG (NEG-TRACE)
[2021-02-21 11:38] LABS: Appearance Urine CLEAR; Color Urine YELLOW
[2021-02-21] MEDS: ondansetron HCL 4 MG/2 ML VIAL IVPUSH (11:38)
[2021-02-21] MEDS: Aspirin Enteric Coated 325 MG TABLET.DR PO (11:38)
[2021-02-21 11:39] LABS: MANUAL DIFF FLAG NO
[2021-02-21] MEDS: 0.9 % Sodium Chloride 1,000 ML 999 ML IVCONT (11:39)
[2021-02-21 11:41] LABS: Basophils Percent Auto 0.3 % (0-2); Eosinophils Percent Auto 0.2 % (0-4); Hematocrit 34.5 % (37-47); Hemoglobin 11.9 g/dl (12.0-16.0); Imm Gran Abs Auto 0.05 X10*3/uL (0.00-0.03); Imm Gran Pct Auto 0.4 % (0.0-0.4); Lymphocytes Absolute Auto 3.2 X10*3/uL (1.2-4.9); Lymphocytes Percent Auto 27.6 % (20-40); Mean Corpuscular HGB Conc 34.5 g/dl (31.0-35.0); Mean Corpuscular Hemoglobin 27.7 pg (27.0-33.0); Mean Corpuscular Volume 80.2 fL (80-98); Mean Platelet Volume 9.4 fL (9.4-12.3); Monocytes Absolute Auto 0.7 X10*3/uL (0.1-1.2); Monocytes Percent Auto 5.9 % (2-11); Neutrophils Absolute Auto 7.6 X10*3/uL (2.0-8.3); Neutrophils Percent Auto 65.6 % (45-73); Platelet Count 389 X10*3/uL (160-400); Red Cell Distribution Width 14.2 % (11.0-16.0); White Blood Count 11.6 X10*3/uL (4.8-10.8)
[2021-02-21 11:56] VITALS: PULSE 78
[2021-02-21 11:58] LABS: Amphetamine Screen Urine Not Detected (Not Detect); Barbiturates, Urine Not Detected (Not Detect); Benzodiazepines Screen Urine Not Detected (Not Detect); Cannabinoid Screen Urine Not Detected (Not Detect); Cocaine Screen Urine POSITIVE (Not Detect); Opiate Screen Urine Not Detected (Not Detect); Phencyclidine Screen Urine Not Detected (Not Detect)
[2021-02-21 12:02] LABS: Alanine Aminotransferase 12 U/L (0-31); Albumin Level 4.1 g/dL (3.5-5.0); Alkaline Phosphatase 47 U/L (39-117); Anion Gap 14 (12-20); Aspartate Amino Transferase 13 U/L (5-31); Bilirubin Direct 0.2 mg/dL (0.0-0.5); Bilirubin Total 0.4 mg/dL (0.0-1.0); Blood Urea Nitrogen 10 mg/dL (9-16); Calcium 9.3 mg/dL (8.4-10.2); Carbon Dioxide 22 mmol/L (22-29); Chloride 108 mmol/L (96-108); Creatinine Clr Calc Pharmacy 87.4; Estimated Glomerular Filt Rate > 60; Glucose Random 94 mg/dL (60-115); Potassium 3.6 mmol/L (3.3-5.1); Sodium 140 mmol/L (135-145); Total Protein 6.7 g/dL (6.5-8.0)
[2021-02-21 12:04] LABS: Troponin-I High Sensitivity < 3.5 ng/L (<3.5-17.0)
[2021-02-21 12:37] VITALS: BP 106/61; PULSE 67; RESP 17; TEMP 36.6; O2SAT 99
== END 2021-02-21 13:23 | disposition home or self-care (01) ==
PROVIDERS: Emergency Provider Emergency Medicine; PCP Internal Medicine
DX: R07.89 Other chest pain (principal); F14.10 Cocaine abuse, uncomplicated; F41.9 Anxiety disorder, unspecified; F17.210 Nicotine dependence, cigarettes, uncomplicated; Z79.899 Other long term (current) drug therapy
CPT/HCPCS: 36415; 80048; 80076; 80307; 81003; 84484; 85025; 93005; 96361; 96374; 99284; 99285; J2405

== ENCOUNTER → 2021-07-05 10:52 | Outpatient (BNVA) | payer MEDICARE, MEDICAID, SELFPAY | PROVIDERS: PCP Internal Medicine; Visit Provider Physician Assistant | DX: Z13.89 Encounter for screening for other disorder (principal) | CPT/HCPCS: Q3014 ==